=== PATIENT | male | born 1960 | race American Indian/Alaskan Native ===

== ENCOUNTER 2020-04-21 21:46 | Emergency (ER) | payer SELFPAY ==
[2020-04-21] MEDS ORDERED: SODIUM CHLORIDE 0.9% 1000 ML 2,000 ML ONE (21:50)
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
[2020-04-21] MEDS ORDERED: SODIUM CHLORIDE 0.9% 1000 ML 1,000 ML IV ONE ×2 (21:52)
[2020-04-21 22:20] LABS: Hematocrit 37.8 % (35.5-45.6); Hemoglobin 12.2 gm/dl (11.8-15.2); Mean Corpuscular HGB Conc 32 % (32-34); Mean Corpuscular Volume 100 fl (84-94); Platelet Count 247 K/mm3 (140-440); Red Blood Count 3.76 M/mm3 (3.65-5.03); Red Cell Distribution Width 14.7 % (13.2-15.2)
[2020-04-21 22:25] LABS: Basophils # (Auto) 0.1 K/mm3 (0.0-0.1); Basophils % (Auto) 0.7 % (0.0-1.8); Eosinophils # (Auto) 0.4 K/mm3 (0.0-0.4); Eosinophils % (Auto) 2.1 % (0.0-4.3); Lymphocytes # (Auto) 6.7 K/mm3 (1.2-5.4); Lymphocytes % (Auto) 39.6 % (13.4-35.0); Monocytes # (Auto) 1.5 K/mm3 (0.0-0.8); Monocytes % (Auto) 9.1 % (0.0-7.3)
[2020-04-21 22:30] LABS: INR 1.27 (0.87-1.13)
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
[2020-04-21 22:31] LABS: Partial Thromboplastin Time 31.6 Sec. (24.2-36.6)
[2020-04-21 22:34] LABS: Alanine Aminotransferase 17 units/L (7-56); BUN/Creatinine Ratio 13; Blood Urea Nitrogen 13 mg/dL (9-20); Calcium 8.1 mg/dL (8.4-10.2); Hemolysis Index 12
--- NOTE | 2020-04-21 22:50 | XRay Report ---
CHEST 1 VIEW INDICATION: Chest tube insertion COMPARISON: Exam done earlier tonight FINDINGS: Support devices: Left pleural drainage tube has been placed. Approximately 5 cm of the tube is within the thoracic cavity. Heart: Stable. Lungs/Pleura: Left pleural fluid, presumably hemothorax, is significantly decreased. No pneumothorax. Right lung remains clear. IMPRESSION: 1. Marked improvement in the left hemothorax. Signer Name: Nathaniel Palomino MD Signed: 04/21/2020 10:45 PM Workstation Name: [id number]
[2020-04-22 06:31] VITALS: BP 68/44
== END 2020-04-21 23:45 | disposition other institution (70) ==
LOC: ED 21:46
DX: J94.2 Hemothorax (principal); W34.09XA Accidental discharge from other specified firearms, initial encounter; Y93.89 Activity, other specified; Y92.89 Other specified places as the place of occurrence of the external cause; Y99.8 Other external cause status
CPT/HCPCS: 32551; 36415; 36430; 71045; 74018; 80053; 82550; 84484; 85025; 85610; 85730; 86850; 86900; 86901; 86920; 96360; 99291; J7030; P9016; 80320; G0480